=== PATIENT | male | born 1945 | race Caucasian/White ===

== ENCOUNTER 2021-06-03 23:27 | Emergency (ER) | payer MEDICARE ==
--- NOTE | 2021-06-04 01:34 | EDM.PDOC ---
ED HPI GENERAL MEDICAL PROBLEM - General Chief Complaint: Lower Extremity Injury/Pain Stated Complaint: BLOOD CLOT IN LEFT LEG? Time Seen by Provider: 06/03/21 23:55 Source of Information: Reports: Patient History Limitations: Reports: No Limitations - History of Present Illness INITIAL COMMENTS - FREE TEXT/NARRATIVE: José Miguel is a 75-year-old male presenting to the ED for evaluation of painful bruising along the posterior aspect of his bilateral thighs after falling on a dock several days ago as well as increased redness and swelling involving his left great toe after he injured the toe stubbing it about 5 days ago causing the nail matrix to open. Patient has dystrophic toenails and the toe is red, very swollen up until the first MTP on the left foot.. The patient was seen by Brandon Kimball MD who started him on cephalexin 500 mg 4 times daily 4 days ago. Despite this, the redness and swelling is continued to worsen. 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 The patient was concerned about deep venous thrombosis. - Related Data Allergies Allergy/AdvReac Type Severity Reaction Status Date / Time No Known Allergies Allergy Verified 06/03/21 23:59 Home Meds: Home Meds cephALEXin [Cephalexin] 500 mg PO QID 06/03/21 [History] Pramipexole Di-HCl [Mirapex] 1 mg PO DAILY 06/04/21 [History] Sertraline HCl 200 mg PO DAILY 06/04/21 [History] Sulfamethoxazole/Trimethoprim [Bactrim Ds Tablet] 1 each PO DAILY 06/04/21 [History] Zolpidem Tartrate [Ambien] 10 mg PO DAILY 06/04/21 [History] atorvaSTATin Calcium [Lipitor] 40 mg PO DAILY 06/04/21 [History] Past Medical History HEENT History: Reports: Hard of Hearing Cardiovascular History: Reports: High Cholesterol Genitourinary History: Reports: Prostate Disorder Dermatologic History: Reports: Other (See Below) Other Dermatologic History: L big toe swollen Social & Family History - Tobacco Use Tobacco Use Status *Q: Never Tobacco User - Caffeine Use Caffeine Use: Reports: Soda Review of Systems - Review of Systems Review Of Systems: See Below Constitutional: Reports: No Symptoms Mouth/Throat: Reports: No Symptoms Respiratory: Reports: No Symptoms Cardiovascular: Reports: Edema GI/Abdominal: Reports: No Symptoms Genitourinary: Reports: No Symptoms Musculoskeletal: Reports: Foot Pain (Significant swelling of the left great toe with dystrophic nail and redness, increased heat, and tenderness. Extending from the nail matrix there appears to be a bulla or superficial abscess.), Muscle Pain (Bruising and tenderness of the posterior bilateral calfs and thighs since falling on the dock.) Skin: Reports: Bruising (Significant bruising posterior bilateral thighs and posterior left calf extending down to the heel.), Erythema (Significant erythema and edema of the right great toe) Neurological: Reports: No Symptoms Psychiatric: Reports: No Symptoms ED EXAM, GENERAL - Physical Exam Exam: See Below Exam Limited By: No Limitations General Appearance: Alert, No Apparent Distress Cardiovascular: Normal Peripheral Pulses, Regular Rate, Rhythm, No Murmur Peripheral Pulses: 2+: Popliteal (L), Popliteal (R), Posterior Tibial (L), Posterior Tibial (R) Extremities: Normal Capillary Refill, Pedal Edema (Symmetric bilateral 1+ edema), Joint Swelling (Very significant swelling of the left great toe with erythema, increased temperature, tenderness, and decreased range of motion due to the swelling.), Limited Range of Motion (Left great toe secondary to swelling), Increased Warmth (Left great toe), Other (Dystrophic nail on the left great toe. Damage to the nail matrix that is starting to heal from previous injury. No evidence for subungual hematoma. No erythema tracking up the foot. The patient does have bilateral posterior thigh hematomas from a fall on the dock. ). No: Raina's Sign (Negative Homans' sign bilaterally. There is no cords palpable. There is no significant asymmetric edema.) Neurological: Alert, Oriented, Normal Cognition, No Motor/Sensory Deficits Psychiatric: Normal Affect, Normal Mood Skin Exam: Ecchymosis (Significant ecchymosis and swelling of the bilateral posterior thighs extending down the left calf with bruising noted in the left ankle at the heel. This is from a previous fall on a dock.), Wound/Incision (Left great toe erythema, edema, tenderness, and increased heat consistent with a cellulitis.) Lymphatic: No Adenopathy Course - Vital Signs Last Recorded V/S: Last Vital Signs Temp 36.6 C 06/04/21 00:12 Pulse 61 06/04/21 00:12 Resp 18 06/03/21 23:53 BP 138/69 06/04/21 00:12 Pulse Ox 97 06/03/21 23:53 - Orders/Labs/Meds Orders: Active Orders 24 hr Category Date Time Status CULTURE WOUND + SMEAR [RM] Stat Lab 06/04/21 01:25 Received D-DIMER QUANTITATIVE [COAG] Stat Lab 06/04/21 00:10 Received Labs: Laboratory Tests 06/04/21 06/04/21 06/04/21 Range/Units 00:10 00:20 00:20 WBC 10.0 (4.5-11.0) K/uL RBC 4.03 L (4.30-5.90) M/uL Hgb 12.0 (12.0-15.0) g/dL Hct 37.1 L (40.0-54.0) % MCV 92 (80-98) fL MCH 30 (27-31) pg MCHC 32 (32-36) % Plt Count 256 (150-400) K/uL Neut % (Auto) 55.6 (36-66) % Lymph % (Auto) 30.7 (24-44) % [place] % (Auto) 7.1 H (2-6) % Eos % (Auto) 6.2 H (2-4) % Baso % (Auto) 0.4 (0-1) % Sodium 141 (140-148) mmol/L Potassium 3.7 (3.6-5.2) mmol/L Chloride 104 (100-108) mmol/L Carbon Dioxide 26 (21-32) mmol/L Anion Gap 11.0 (5.0-14.0) mmol/L BUN 18 (7-18) mg/dL Creatinine 1.2 (0.8-1.3) mg/dL Est Cr Clr Drug Dosing 66.31 mL/min Estimated GFR (MDRD) 59 L (>60) Glucose 125 H (74-106) mg/dL Uric Acid 4.8 (3.5-7.2) mg/dL Calcium 8.5 (8.5-10.1) mg/dL C-Reactive Protein < 0.05 (0.0-0.3) mg/dL - Re-Assessments/Exams Free Text/Narrative Re-Assessment/Exam: 06/04/21 01:56 labs were obtained including a CBC with a leukocyte count of 10.0 and a normal differential. Hemoglobin is 12.0 with a hematocrit of 37.1 and a platelet count of 256,000. Basic metabolic profile shows a sodium of 141, potassium 3.7, chloride of 104, bicarbonate of 28, BUN of 18 with a creatinine 1.2 and a glucose of 125. Calcium is normal at 8.5. C-reactive protein is normal at less than 0.05 and uric acid is normal at 4.8. With this, it is unlikely that there is any evidence for this being an acute gout flare although would be the right location and symptoms. It does appear that this started after the patient injured the nail matrix area and is likely progressing cellulitis. The patient has been on more than adequate amount of cephalexin without improvement so we will switch him to Bactrim double strength to cover for MRSA. He normally takes 1 Bactrim double strength daily we will increase this to 2 a day for the next 10 days. D-dimer was obtained is negative. Overall, I do not believe that this is consistent with deep venous thrombosis but more over he has traumatic hematomas related to injury of the muscles involving the hamstrings and gastrocnemius muscles. I did attempt to get a wound culture from the area that appeared to be an abscess on the dorsal left great toe, however, this appears to be more likely a dried up bulla as there was no significant pus coming from the pocket once I unroofed it. The patient will be returning to [place] tomorrow and I encouraged him to follow-up with his primary care provider in 2 to 3 days for recheck of the toe. I do not feel at this time requires hospitalization for IV antibiotics. He is in agreement with this plan at this time he suitable for discharge in satisfactory condition. Departure - Departure Time of Disposition: 01:31 Disposition: Home, Self-Care 01 Clinical Impression: Cellulitis of great toe of left foot Hematoma of lower extremity Qualifiers: Encounter type: initial encounter Laterality: unspecified laterality Qualified Code(s): S80.10XA - Contusion of unspecified lower leg, initial encounter - Discharge Information Instructions: Cellulitis, Adult Referrals: PCP,None [Primary Care Provider] - Forms: ED Department Discharge Care Plan Goals: We will increase your Bactrim to 1 tablet twice daily for the next 10 days to treat the cellulitis. You may discontinue the cephalexin as it does not appear to have helped. Aloe up with your primary care provider when you return to [place]. Sepsis Event Note (ED) - Evaluation Sepsis Screening Result: No Definite Risk - Focused Exam Vital Signs: Vital Signs Temp Pulse Resp BP Pulse Ox 06/04/21 00:12 36.6 C 61 138/69 06/03/21 23:53 36.4 C 61 18 128/69 97 - Problem List & Annotations (1) Cellulitis of great toe of left foot SNOMED Code(s): 00145888 Code(s): L03.032 - CELLULITIS OF LEFT TOE Status: Acute Priority: Medium Current Visit: Yes (2) Hematoma of lower extremity SNOMED Code(s): 335844430 Code(s): S80.10XA - CONTUSION OF UNSPECIFIED LOWER LEG, INITIAL ENCOUNTER Status: Acute Priority: Medium Qualifiers: Encounter type: initial encounter Laterality: unspecified laterality Qualified Code(s): S80.10XA - Contusion of unspecified lower leg, initial encounter - Problem List Review Problem List Initiated/Reviewed/Updated: Yes - My Orders Last 24 Hours: My Active Orders 06/04/21 00:10 D-DIMER QUANTITATIVE [COAG] Stat 06/04/21 01:25 CULTURE WOUND + SMEAR [RM] Stat - Assessment/Plan Last 24 Hours: My Active Orders 06/04/21 00:10 D-DIMER QUANTITATIVE [COAG] Stat 06/04/21 01:25 CULTURE WOUND + SMEAR [RM] Stat
== END 2021-06-04 01:43 | disposition home or self-care (01) ==
LOC: JP.ED 23:27
DX: L03.032 Cellulitis of left toe (principal); S80.12XA Contusion of left lower leg, initial encounter; E78.00 Pure hypercholesterolemia, unspecified; Z79.899 Other long term (current) drug therapy; W17.4XXA Fall from dock, initial encounter
CPT/HCPCS: 36415; 80048; 84550; 85025; 85379; 86140; 87070; 87077; 87186; 87205; 99283